=== PATIENT | male | born 1975 | race Caucasian/White ===

== ENCOUNTER 2020-06-22 06:34 | Day surgery (SDC) | payer OTHER ==
--- NOTE | 2020-06-18 11:39 | RAD REPORT ---
EXAM DESCRIPTION: RAD - Chest Pa And Lat (2 Views) - 06/18/2020 11:31 am CLINICAL HISTORY: preop, pending hernia surgery COMPARISON: February 2013 TECHNIQUE: Frontal and lateral views of the chest were obtained. FINDINGS: The lungs are clear. No failure or volume overload. Rib, scapula and lung parenchymal sum mation artifact seen in the left mid chest. Trachea is midline. Heart size is normal and central vasc ulature is within normal limits. No pleural effusion or pneumothorax seen. No acute bony finding no ashwini. No aortic abnormality. IMPRESSION: No acute cardiopulmonary process. No significant or suspicious change from 2013.
[2020-06-22] MEDS ORDERED: CEFAZOLIN/SWI 1gm 1 GM/10 ML SYR ONE (07:13)
[2020-06-22] MEDS ORDERED: Ringers Lactate 1,000 ML IV ONE ×2 (07:13→08:54)
[2020-06-22] MEDS ORDERED: LIDOCAINE 1% MPF 30 ML VIAL ONE (07:32)
[2020-06-22] MEDS ORDERED: FENTANYL CITR 100 MCG/2 ML ONE (07:38)
[2020-06-22] MEDS ORDERED: propofoL 200 MG/20 ML VIAL IV ONE (07:38)
[2020-06-22] MEDS ORDERED: KETOROLAC 30 MG/ML INJ ONE (07:39)
[2020-06-22] MEDS ORDERED: MIDAZOLAM HCL 2 MG/2 ML INJ ONE (07:39)
[2020-06-22] MEDS ORDERED: ONDANSETRON 4 MG/2 ML VIAL ONE (07:39)
[2020-06-22] MEDS ORDERED: LIDOCAINE 2% MPF 5 ML VIAL ONE (07:39)
[2020-06-22] MEDS ORDERED: dexAMETHasone 10 MG/ML VIAL ONE (07:39)
[2020-06-22] MEDS ORDERED: HYDROCODONE/APAP 7.5/325 MG TAB PO ONE (09:40)
[2020-06-22 09:48] VITALS: BP 128/86; TEMP 97.4; O2SAT 100
[2020-06-22] MEDS ORDERED: HYDROCODONE/APAP 7.5/325 MG TAB ONE (09:55)
--- NOTE | 2020-06-22 10:17 | OP ---
Date of Procedure: 06/22/2020 Surgeon: Kunal Figueroa MD Insurance Claims Clerk: ERIBERTO Guerrero. Preoperative Diagnosis: Left inguinal hernia and right scrotal mass. Postoperative Diagnosis: Left inguinal hernia and right scrotal mass. Procedure: Repair of left inguinal hernia and excision of right scrotal mass. Estimated Blood Loss: Minimal. Specimen: Indirect sac from the left groin. Cord lipoma from the left groin and scrotal mass. Findings: As above. Anesthesia: General. Complications: None. Disposition: The patient tolerated the procedure in stable condition and taken back to ICU in good g eneral condition. Procedure In Detail: The patient was brought to the OR and placed in supine position. General anest hesia begun. Then, the patient was prepped and draped in the usual sterile fashion. Marcaine 0.5% w as infiltrated in a field block fashion in the left groin. A 15 blade was used to make a 4 cm incisi on. A 4 cm incision was made between the pubic tubercle, and the anterior iliac superior spine. Sub cutaneous tissue was divided. Susan fascia was identified and divided. Aponeurosis identified and mobilized inferiorly to expose shelving edge, then opened through the external ring. Ilioinguinal ne rve was identified and retracted out of the field of dissection. Cord was mobilized at the pubic tub ercle and skeletonized. An indirect hernia sac was identified and cord lipoma both excised. Base of the cord lipoma tied off with 2-0 chromic and the hernia sac was freed from the surrounding structur es and then suture ligature with 2-0 Prolene and free and tie was done. Hernia sac was excised, sent to Pathology. Then, Marlex mesh plug was placed in the internal ring and secured with VersaTack sta pler. Onlay mesh was placed on the inguinal floor, secured medially to the pubic tubercle, superiorl y to the conjoined tendon, and laterally to each other inferior to the shelving edge, laterally to ea ch other, then cord structures and ilioinguinal nerve were placed back in anatomical location. Then, 2-0 Prolene was used to close the aponeurosis and 3-0 chromic used to close Susan's fascia. Staple was used to close the skin and then on the right scrotum approximately a 2 cm incision was made, sub cutaneous tissue divided and then just below the epidermis and above the dermis, there was a nodule a pproximately 1.5 cm in diameter which was excised, sent to Pathology as specimen. Wound was irrigate d. Bleeding was controlled with cautery. 4-0 chromic was used in a running fashion to close the wou nd. Sterile dressing was applied. The patient was awakened and taken to Recovery in good general co ndition. Discharge Note: The patient will go to Day Surgery and home when stable. Disposition: Home. Condition: Stable. Discharge Instructions: Resume home medications and diet. Activity as tolerated. No heavy lifting. Remove outer dressing in 2 days. Shower. Keep wound clean and dry. Ice pack, scrotal support. T ylenol No. 3 one tablet p.o. q.4 p.r.n. pain. Follow up in my office in 10 days, call for appointmen julissa KEEN/NANDA Voice ID: [id number] Report ID: [id number]
== END 2020-06-22 10:23 | disposition home or self-care (01) ==
LOC: OR 06:34
PROVIDERS: ATTEND Surgery
PROC: 0YU60JZ Supplement Left Inguinal Region with Synthetic Substitute, Open Approach (ICD-10-PCS; principal; 2020-06-22 07:30)
PROC: 0HBAXZZ Excision of Inguinal Skin, External Approach (ICD-10-PCS; 2020-06-22 07:30)
DX: K40.90 Unilateral inguinal hernia, without obstruction or gangrene, not specified as recurrent (principal); L94.2 Calcinosis cutis; R22.2 Localized swelling, mass and lump, trunk; Z20.822 Contact with and (suspected) exposure to COVID-19
CPT/HCPCS: 93005; 88302; 88305; 71046; 49505; 11422; U0002; J2704; J2250; J3010; J1100; J0690; J7120 ×2; J2405; 88311